=== PATIENT | female | born 1985 | race Caucasian/White ===

== ENCOUNTER 2016-11-12 22:29 | Emergency (ER) | payer OTHER ==
[2016-11-12 22:45] VITALS: RESP 16; TEMP 97.5
[2016-11-12] MEDS ORDERED: HYDROCODONE/APAP 5/325 TAB PO ONE (23:18)
--- NOTE | 2016-11-12 23:30 | EDPHY ---
H & P Time Seen by Provider: 11/12/16 23:08 HPI/ROS: This 31-year-old female with no significant past medical history presents emergency department for left wrist pain after falling while playing soccer this evening. She fell backwards onto her outstretched wrist. She has pain over the medial aspect of her wrist which worsens with movement. There is no obvious deformity noted upon arrival but she is quite tender over that area. She denies any other injury. Past Medical/Surgical History: Past medical history: Denied Smoking Status: Never smoked Physical Exam: General: Alert and oriented x3, in moderate discomfort HEENT: Normocephalic, atraumatic Neck: Supple, nontender Cardiac: Normal peripheral perfusion Pulmonary: Nonlabored respirations Extremities: No significant deformity noted to left wrist, moderate to severe tenderness to palpation over the radial aspect of the wrist. Radial pulse 2/4. Constitutional: Initial Vital Signs Temperature (C) 97.5 F 11/12/16 22:43 Heart Rate 90 11/12/16 22:43 Respiratory Rate 16 11/12/16 22:43 Blood Pressure 119/81 H 11/12/16 22:43 O2 Sat (%) 97 11/12/16 22:43 O2 Delivery Mode Room Air Allergies/Adverse Reactions: sulfamethoxazole [From Bactrim] Allergy (Mild, Verified 11/12/16 22:47) Other-Enter Comments trimethoprim [From Bactrim] Allergy (Mild, Verified 11/12/16 22:47) Other-Enter Comments Home Medications: Medication Instructions Recorded Amoxicillin 2 tab PO BID #38 tablet 07/09/13 Fluticasone Nasal [Flonase Nasal 2 sprays NASAL DAILY #1 spray 07/09/13 [place]] Medical Decision Making - Diagnostics Imaging Results: Imaging Impressions Wrist X-Ray 11/12/16 22:46 Impression: 1. Nondisplaced fracture through the body of the navicula. Nondisplaced navicular fracture of the left wrist by my read. Please refer to the final radiology report. Imaging: Discussed imaging studies w/ outbound sales consultant Radiologist ED Course/Re-evaluation: The patient was seen and examined. Vital signs were reviewed. An x-ray of the left wrist revealed a proximal navicular fracture without significant displacement. Physician physician assistant surgery Lisset Benton answered for Ortho on-call and recommended a thumb spica splint. They would like the patient to call 1st thing in the morning to arrange a follow-up appointment. They most likely will see her the day after tomorrow. The patient requested stronger pain medication than ibuprofen and was given 2 [place] in the emergency department. A thumb spica splint was placed by the nuclear plant instrument technician. Circulation motor and sensory were intact status post application by my exam. She was given a take-home pack of [place]. She will take ibuprofen as needed at home. Differential Diagnosis: Includes but is not limited to: Left wrist contusion, left wrist fracture - Data Points Medications Given: Discontinued Medications Hydrocodone Bitart/Acetaminophen ([place] 5/325) 2 tab PO EDNOW ONE Stop: 11/12/16 23:19 Last Admin: 11/12/16 23:24 Dose: 2 tab Departure - Departure Disposition: Home, Routine, Self-Care Clinical Impression: Fracture of scaphoid bone of left wrist Qualifiers: Encounter type: initial encounter Fracture type: closed Condition: Good Instructions: Hydrocodone/Acetaminophen (By mouth), Ibuprofen (By mouth), Splint Care (ED), Scaphoid Fracture (ED) Referrals: Alta Buck MD [Primary Care Provider] - As per Instructions Mikel Whipple MD [Medical Doctor] - As per Instructions (Call first thing in the morning to arrange follow up on Thursday.)
[2016-11-12] MEDS ORDERED: HYDROCOD/APAP 5/325 PREPACK#6 BTL TAKEHOME ONE (23:38)
[2016-11-12 23:58] VITALS: BP 111/72; PULSE 87; O2SAT 95
== END 2016-11-12 23:57 | disposition home or self-care (01) ==
LOC: CED 22:29
DX: S62.002A Unspecified fracture of navicular [scaphoid] bone of left wrist, initial encounter for closed fracture (principal); W18.39XA Other fall on same level, initial encounter; Y99.8 Other external cause status; Y93.66 Activity, soccer
CPT/HCPCS: 73110-PO